=== PATIENT | female | born 1985 | race Caucasian/White ===

== ENCOUNTER 2016-12-21 21:56 | Emergency (ER) | payer SELFPAY ==
[~2016-12-21 21:56] MED LIST: ALBUTEROL17 GM INH; AMOXICILLIN PO; BACTRIM DS PO; BACTRIM DS TABL1 TA1 PO; BIAXIN PO; CIPRO PO; DICYCLOMINE HCL20 MG PO; ERYTHROMYC3.5 GM OPT OD; LORTAB 5/500 TA1 TA1 PO; MACROBID100 M1 PO; NEXIUM PO; NO MEDICATIONS; PHENERGAN PO; PHENERGAN PR; PHENERGAN25 M1 PO; PRENATAL MULITV1 TAB PO; PRENATAL VITAMI1 TA5 PO; PRILOSEC20 MG PO; PYRIDIUM PO; PYRIDIUM100 MG PO; REGLAN10 MG PO; VIBRAMYCIN100 M1 PO; VICODIN 5/500 T1 TAB PO; VICODIN PO; ZOFRAN ODT4 MG PO; ZOFRAN ODT4 MG/UDTAB PO; ZOFRAN PO
== END 2016-12-21 23:00 | disposition home or self-care (01) ==
LOC: CED 21:56
DX: J06.9 Acute upper respiratory infection, unspecified (principal); F17.210 Nicotine dependence, cigarettes, uncomplicated
CPT/HCPCS: 99284